=== PATIENT | female | born 1995 | race Two or more races ===

== ENCOUNTER 2017-06-07 23:10 | Emergency (ER) | payer MEDICAID ==
[2017-06-07 23:19] VITALS: RESP 16
--- NOTE | 2017-06-07 23:39 | EDPHY ---
H & P Stated Complaint: L LATERAL CHEST WALL PAIN Time Seen by Provider: 06/07/17 23:23 HPI/ROS: CHIEF COMPLAINT: left chest pain HISTORY OF PRESENT ILLNESS: 21-year-old otherwise healthy though obese female notes that she started having pain on the left chest sometimes radiating to the epigastrium beginning 4 days ago. It started when she had laying down for sleep having felt fine the entire day. This was around 10:00 p.m.. It was mild -to-moderate 1st got pretty bad quickly enough that she had trouble sleeping at night. Ever since then she has had trouble sleeping. The pain itself is stated in the same location, is not expanding or radiating. It is something she has never had before. She notes that is slightly worse with twisting and bending but not breathing per se. Nor is it sensitive to touch. She does not recall any trauma though interestingly, she did moved to the area the last week and there was some lifting involved. There is no recollection of specific injury per se though however. Perc rule is negative. No hormone therapy, nor prior history of DVT, or leg symptoms. No family history of hypercoagulable syndrome, history of PE, . No hemoptysis The pain itself is steady, slightly worse with movement but somewhat, for instance when she undressed or climbs to the stretcher. There has been no exertional component to this. No nausea vomiting diaphoresis. No pleuritic pain. She is currently on her menses, she is 4 days late, home test was negative although taken in the latter part of the day. She notes that she has tends to be quite regular and this is very unusual for her to be late. As she is new to the area, she was on a job interview earlier today, but does not scheduled to work tomorrow REVIEW OF SYSTEMS: Constitutional: No fever, no chills. Eyes: No discharge ENT: No sore throat. Cardiovascular: See above Respiratory: See above Gastrointestinal: No nausea vomiting or diarrhea. No abdominal pain. Genitourinary: No hematuria or frequency. Musculoskeletal: See above Skin: No rashes. Neurological: No headache. 10 point ROS otherwise negative Source: Patient - Personal History LMP (Females 10-55): Now Current Tetanus/Diphtheria Vaccine: Yes - Medical/Surgical History Hx Asthma: No Hx Chronic Respiratory Disease: No Hx Diabetes: No Hx Cardiac Disease: No Hx Renal Disease: No Hx Cirrhosis: No Hx Alcoholism: No Hx HIV/AIDS: No Hx Splenectomy or Spleen Trauma: No Other PMH: DENIES PMH/PSH - Family History Significant Family History: No pertinent family hx (No family history of hypercoagulable syndrome or DVT/PE. No early-onset coronary disease) - Social History Smoking Status: Current every day smoker Alcohol Use: None Drug Use: None - Physical Exam Exam: General Appearance: Alert, no distress. Afebrile. Normal phonation. No respiratory distress. Eyes: Pupils equal and round no pallor or injection. No icterus ENT, Mouth: Mucous membranes moist. Pharynx without erythema or exudate. TM Clear. Neck: No adenopathy. Supple. No JVD. Trachea in midline. Respiratory: There are no retractions, lungs are clear to auscultation. Chest wall: Tender to the lateral chest wall palpation, recreating the pain. No crepitus. No rashes. Cardiovascular: Regular rate and rhythm, no murmur Abdomen: Soft and nontender, no masses, bowel sounds normal. Neurological: Ox3. No motor weakness. Sensation intact. Gait nl. Skin: Warm and dry, no rashes. Musculoskeletal: No joint swelling. Extremities: No edema. Homans sign negative. No cords. Psychiatric: Normal affect. Constitutional: Initial Vital Signs Temperature (C) 37.1 C 06/07/17 23:10 Heart Rate 76 06/07/17 23:10 Respiratory Rate 16 06/07/17 23:10 Blood Pressure 128/88 H 06/07/17 23:10 O2 Sat (%) 98 06/07/17 23:10 O2 Delivery Mode Room Air Allergies/Adverse Reactions: No Known Allergies Allergy (Unverified 06/07/17 23:15) Home Medications: Medication Instructions Recorded NK [No Known Home Meds] 06/07/17 Medical Decision Making - Diagnostics Imaging Results: Chest x-ray: Two view chest. Interpreted by me, contemporaneously. Films reviewed by me on the PACS system. Normal mediastinum. Normal lung dalal. No effusions. Normal chest. Imaging: I viewed and interpreted images myself ED Course/Re-evaluation: Her Perc Rule is 0 thus no further workup with suspect PE/DVT is necessary. test was performed as she was late and ultimately negative thigh she was cleared for chest x-ray. Chest x-ray negative-see my interpretation above. No pneumothorax or pneumonia or atelectasis. Going forward reviewed pain management home to consist of ibuprofen 600 mg three times daily as well as Tylenol 1 g three times daily. Notably, she has not been taking for pain over the last 3 or 4 days as she does not like to take medications in general. I do feel she will have a more expeditious recovery she avoid any straining or muscle lifting as well as the taking the course of the ibuprofen. I have shared these thoughts with her. Differential Diagnosis: Differential diagnosis includes but is not limited to the following: Pneumothorax, pleurisy, pulmonary embolus, shingles, anxiety, muscle strain. Departure - Departure Disposition: Home, Routine, Self-Care Clinical Impression: Chest wall pain Condition: Good Instructions: Chest Wall Pain (ED) Additional Instructions: Tylenol and Advil works well together the combination: Tylenol 1000 mg and 600 mg every 8 hours. Return if he develops new symptoms such as shortness of breath, leg swelling, fever or cough. He will need a recheck in 1 weeks time if not all better. See referral. Referrals: Kay Agustin DO [Doctor of Osteopathy] - As per Instructions
[2017-06-08 00:44] VITALS: BP 138/88; PULSE 72; TEMP 97.9; O2SAT 98
== END 2017-06-08 00:41 | disposition home or self-care (01) ==
LOC: CED 23:10
DX: R07.89 Other chest pain (principal); F17.200 Nicotine dependence, unspecified, uncomplicated
CPT/HCPCS: 71020-PO; 84703-PO

== ENCOUNTER 2017-09-08 22:48 | Emergency (ER) | payer MEDICAID ==
[2017-09-08] MEDS ORDERED: PHENAZOPYRIDINE HCL 200 MG TAB PO ONE (22:58)
--- NOTE | 2017-09-08 22:58 | EDPHY ---
H & P Time Seen by Provider: 09/08/17 22:52 HPI/ROS: HPI Urinary complaints. 22-year-old female by private vehicle. This patient complains of increased frequency with urination for the last 5 days. She reports that 2 days ago she started having burning with urination. No gross hematuria. She denies fever. No back pain. No nausea or vomiting. ROS: Constitutional: No fever, no chills. No weakness. Respiratory: No cough. No shortness of breath. Cardiac: No chest pain, no palpitations. Gastrointestinal: No abdominal pain, no vomiting, no diarrhea. Genitourinary: As above. No vaginal discharge. Musculoskeletal: No back pain. No neck pain. No myalgias or arthralgias. Skin: No rashes. Neurological: No headache. No focal weakness or altered sensation. Past medical history: She denies any significant past medical history. Social history: Smoker. No alcohol. Here by herself. Physical Exam: General Appearance: Alert, no distress. This patient is responding to questions appropriately and in full sentences. This patient appears well- hydrated and well-nourished. Eyes: Pupils equal and round no pallor or injection. No lid edema, erythema or injection. Respiratory: There are no retractions, lungs are clear to auscultation with good air movement bilaterally. Cardiovascular: Regular rate and rhythm. No murmur. Gastrointestinal: Abdomen is soft and nontender, no masses, bowel sounds normal. No focal tenderness at McBurney's point. No Elaine sign. Neurological: Motor sensory function is grossly intact. Cranial nerves are normal. Gait is normal. Skin: Warm and dry, no rashes. Musculoskeletal: No CVA tenderness on palpation bilaterally. Extremities are symmetrical. All joints range without pain or impingement. Psychiatric: No agitation. No depression. Database: EKG: Imaging: Procedures: Emergency department course: Vital signs reviewed and are unremarkable. Patient is afebrile. She was given 200 mg of Pyridium. Urinalysis indicative of urinary tract infection. Patient' s medication allergies reviewed. She was started on Keflex in the emergency department. She will be prescribed this medication 500 mg, four times daily over the next 5 days for treatment of her urinary tract infection. She feels comfortable going home. Follow-up and return to emergency department precautions reviewed with her. All of her questions were answered. She was discharged in good condition with her father. Differential Diagnosis: The differential diagnosis on this patient includes but is not limited to urinary tract infection. Pyelonephritis, STI unlikely. This represents a partial list of diagnoses considered. These considerations are based on history , physical exam, past history, reassessment and diagnostic testing. Smoking Status: Current every day smoker Constitutional: Initial Vital Signs Temperature (C) 36.7 C 09/08/17 22:56 Heart Rate 92 09/08/17 22:56 Respiratory Rate 16 09/08/17 22:56 Blood Pressure 135/87 H 09/08/17 22:56 O2 Sat (%) 95 09/08/17 22:56 O2 Delivery Mode Room Air Allergies/Adverse Reactions: No Known Allergies Allergy (Unverified 06/07/17 23:15) Home Medications: Medication Instructions Recorded Cephalexin [Keflex (*)] 500 mg PO Q6 5 Days cap 09/08/17 Phenazopyridine HCl [Pyridium] 200 mg PO TID #10 tab 09/08/17 Medical Decision Making - Data Points Medications Given: Discontinued Medications Cephalexin (Keflex 500 Mg Prepack#4) 1 btl TAKEHOME EDNOW ONE PRN Reason: Protocol Stop: 09/08/17 23:08 Last Admin: 09/08/17 23:15 Dose: 1 btl Phenazopyridine HCl (Pyridium) 200 mg PO EDNOW ONE Stop: 09/08/17 22:59 Last Admin: 09/08/17 23:01 Dose: 200 mg Departure - Departure Disposition: Home, Routine, Self-Care Clinical Impression: Urinary tract infection Condition: Good Instructions: Cephalexin (By mouth), Urinary Tract Infection in Women (ED) Additional Instructions: Read and follow provided instructions. Follow-up with your primary care physician on Monday for re-evaluation. Take antibiotic as prescribed through entire course of treatment. Return to the emergency department for worsening symptoms, back pain, fever, vomiting or other serious concerns. Referrals: NONE *PRIMARY CARE P,. [Primary Care Provider] - As per Instructions Prescriptions: Cephalexin [Keflex (*)] 500 mg PO Q6 5 Days cap Phenazopyridine HCl [Pyridium] 200 mg PO TID #10 tab
[2017-09-08 22:59] VITALS: BP 135/87; PULSE 92; RESP 16; TEMP 98.1; O2SAT 95
[2017-09-08] MEDS ORDERED: CEPHALEXIN 500MG PREPACK#4 BTL TAKEHOME ONE (23:07)
== END 2017-09-08 23:18 | disposition home or self-care (01) ==
LOC: CED 22:48
DX: N39.0 Urinary tract infection, site not specified (principal); F17.200 Nicotine dependence, unspecified, uncomplicated

== ENCOUNTER 2017-10-14 11:14 | Emergency (ER) | payer MEDICAID ==
[2017-10-14 11:30] VITALS: BP 117/72; PULSE 80; RESP 16; TEMP 98.4; O2SAT 97
--- NOTE | 2017-10-14 11:43 | EDPHY ---
H & P Time Seen by Provider: 10/14/17 11:41 HPI/ROS: Chief complaint. Sore throat HPI. 22-year-old female presents emergency department sore throat for 3 days. She also pain right ear which started today. Unsure about fever. No chest discomfort or shortness of breath. No cough. No abdominal pain, vomiting, diarrhea. No known exposures. She does work in [employer] at [employer]. She has had a history of strep in the past ROS Constitutional. no fever/chills, no weakness Eyes. no problems with vision ENT. Sore throat, right ear pain Cardiovascular. no chest pain Respiratory. no shortness of breath, no cough Abdominal. no abdominal pain, no nausea/vomiting, no diarrhea . no problems urinating MS. no calf pain/swelling, no neck/back pain, no joint pain Skin. no rash Lymph. no swollen glands Neuro. no headache, no dizziness, no difficulty walking or with speech Past Medical/Surgical History: Healthy Social History: Single, nonsmoker, no alcohol Smoking Status: Former smoker Physical Exam: General Appearance: Alert pleasant well-developed female mild distress vital signs are stable Eyes: Pupils equal and round no pallor or injection. ENT, tympanic membranes are normal. Pharynx injected with exudate. Mucous membranes are moist. Anterior cervical adenopathy Respiratory: There are no retractions, lungs are clear to auscultation. Cardiovascular: Regular rate and rhythm. Gastrointestinal: Abdomen is soft and nontender, no masses, bowel sounds normal. Neurological: Awake and alert, sensory and motor exams grossly normal. Skin: Warm and dry, no rashes. Musculoskeletal: Neck is supple nontender. Extremities symmetrical, full range of motion. Psychiatric: Patient is oriented X 3, there is no agitation. Constitutional: Initial Vital Signs Temperature (C) 36.9 C 10/14/17 11:26 Heart Rate 80 10/14/17 11:26 Respiratory Rate 16 10/14/17 11:26 Blood Pressure 117/72 10/14/17 11:26 O2 Sat (%) 97 10/14/17 11:26 O2 Delivery Mode Room Air Allergies/Adverse Reactions: No Known Allergies Allergy (Verified 10/14/17 11:26) Home Medications: Medication Instructions Recorded Penicillin V Potassium [Pen Vk 500 mg PO TID 7 Days #21 tab 10/14/17 500mg (*)] Medical Decision Making Procedures: Decadron p.o. ED Course/Re-evaluation: Patient and I discussed treatment plan including criteria for return importance of follow-up and further evaluation . She expresses understanding and agreement On re-evaluation the patient remains stable. She is given Decadron orally in the emergency department Differential Diagnosis: This appears to be strep pharyngitis. She has anterior cervical adenopathy and no cough and purulence on both tonsils. Considered mono and influenza as well Departure - Departure Disposition: Home, Routine, Self-Care Clinical Impression: Acute streptococcal pharyngitis Condition: Good Instructions: Strep Throat (ED) Additional Instructions: Drink plenty of fluids and stay hydrated. Tylenol 1000 mg every 4-6 hours, ibuprofen 600 mg every 6 hr as needed for fever. Penicillin as antibiotic. Return for worsening symptoms. Recheck in 2-3 days if not improving. Stand Alone Forms: Work Excuse Prescriptions: Penicillin V Potassium [Pen Vk 500mg (*)] 500 mg PO TID 7 Days #21 tab
[2017-10-14] MEDS ORDERED: DEXAMETHASONE 4 MG TAB PO ONE (11:51)
== END 2017-10-14 12:10 | disposition home or self-care (01) ==
LOC: CED 11:14
DX: J02.0 Streptococcal pharyngitis (principal); Z87.891 Personal history of nicotine dependence

== ENCOUNTER 2018-03-06 20:12 | Emergency (ER) | payer MEDICAID ==
[2018-03-06 20:24] VITALS: BP 121/83
--- NOTE | 2018-03-06 20:58 | EDPHY ---
H & P Time Seen by Provider: 03/06/18 20:17 HPI/ROS: 22-year-old female presents complaining of bilateral hand rash for several months. Rash has had redness and is at times pruritic. No fevers or chills Review of systems As per HPI General no fever no chills no weakness HEENT no eye pain no eye discharge. No eye redness, no sore throat Respiratory no cough, no shortness of breath Cardiac no chest pain, no peripheral edema GI no abdominal pain, no diarrhea, no constipation, no nausea, no vomiting no flank pain, no hematuria, no dysuria Musculoskeletal no myalgias, no joint pain Heme no easy bruising, no easy bleeding Endo no polyuria, no polydipsia Skin positive rashes, no pruritus Neuro no syncope, no dizziness, no headaches Psych is no suicidal ideation, no homicidal ideation Past Medical/Surgical History: Non contributory Social History: Used to work in [employer] services Smoking Status: Former smoker Physical Exam: Alert and oriented in no acute distress nontoxic appearance, afebrile Atraumatic normocephalic Neck no JVD Lungs clear to auscultation, no respiratory distress Heart regular rate and rhythm Extremities no cyanosis clubbing edema Bilateral hands on palmar surfaces only erythematous papular rash with Skin crevices No purulent drainage, no lymphangitic streaks Constitutional: Initial Vital Signs Temperature (C) 36.9 C 03/06/18 20:21 Heart Rate 81 03/06/18 20:21 Respiratory Rate 15 03/06/18 20:21 Blood Pressure 121/83 H 03/06/18 20:21 O2 Sat (%) 97 03/06/18 20:21 O2 Delivery Mode Room Air Allergies/Adverse Reactions: No Known Allergies Allergy (Verified 10/14/17 11:26) Home Medications: Medication Instructions Recorded Triamcinolone 0.025% 1 alissa TP BID 30 Days #80 gm 03/06/18 [Triamcinolone 0.025% Ointment (*)] Medical Decision Making ED Course/Re-evaluation: Patient seen and evaluated for bilateral hand rash Impression Dyshidrotic eczema Plan Triamcinolone, Eucerin f/u pcp Differential Diagnosis: Differential diagnosis considered but not limited to: Scabies, cellulitis, dyshidrotic eczema Departure - Departure Disposition: Home, Routine, Self-Care Clinical Impression: Eczema of both hands Condition: Good Instructions: Dyshidrotic Eczema (ED) Referrals: NONE *PRIMARY CARE P,. [Primary Care Provider] - As per Instructions Prescriptions: Triamcinolone 0.025% [Triamcinolone 0.025% Ointment (*)] 1 alissa TP BID 30 Days # 80 gm
== END 2018-03-06 21:00 | disposition home or self-care (01) ==
LOC: CED 20:12
DX: L30.9 Dermatitis, unspecified (principal); Z87.891 Personal history of nicotine dependence